=== PATIENT | female | born 1990 | race Two or more races ===

== ENCOUNTER 2020-08-27 18:45 | Inpatient (IN) | payer OTHER ==
[2020-08-27 19:33] VITALS: BMI 29.5
[2020-08-27] MEDS: DEXTROSE 5%-LACTATED RINGERS 1,000 ML IV SCH (19:45)
[2020-08-27] MEDS ORDERED: BETAMET ACET/BETAMET NA PH 30 MG/5 ML VIAL IM ONE (20:25)
[2020-08-27] MEDS ORDERED: BETAMET ACET/BETAMET NA PH 30 MG/5 ML VIAL ONE (20:36)
[2020-08-27] MEDS ORDERED: AMPICILLIN SODIUM 2 GM VIAL ONE (20:36)
[2020-08-27 20:41] LABS: BASO % 0.4 % (0-2.0); EOS % 0.3 % (0-4.5); HEMATOCRIT 36.5 % (32.4-45.2); HEMOGLOBIN 12.5 GM/dL (10.7-15.3); MCH 32.9 pg (25.7-33.7); MCHC 34.4 g/dl (32.0-36.0); MEAN CELL VOLUME 95.9 fl (80-96); MEAN PLT VOLUME 8.6 fl (7.5-11.1); MONO % 9.8 % (3.8-10.2); NEUT % 72.5 % (42.8-82.8); PLATELET COUNT 268 K/MM3 (134-434); RBC 3.81 M/mm3 (3.60-5.2); WHITE BLOOD COUNT 10.3 K/mm3 (4.0-10.0)
[2020-08-27] MEDS ORDERED: AMPICILLIN - 2 GM in SODIUM CHLORIDE 100 ML IVPB ONE (20:45)
[2020-08-27 20:49] LABS: INR 0.96 (0.83-1.09); PROTHROMBIN TIME (PATIENT) 11.6 SEC (9.7-13.0)
[2020-08-27 20:51] LABS: ACTIVATED PTT 25.9 SECONDS (25.2-36.5)
[2020-08-27 21:05] LABS: POTASSIUM 3.7 mmol/L (3.5-5.1)
[2020-08-27 21:06] LABS: CALCIUM 8.9 mg/dL (8.5-10.1)
[2020-08-27 21:07] LABS: BLOOD UREA NITROGEN 10.2 mg/dL (7-18)
[2020-08-27 21:10] LABS: CREATININE 0.5 mg/dL (0.55-1.3)
[2020-08-27 22:49] LABS: URINE BARBITURATES NEGATIVE ng/ml (CUTOFF=200)
[2020-08-27 22:50] LABS: METHADONE, UR NEGATIVE ng/ml (CUTOFF=300); PHENCYCLIDINE,URINE NEGATIVE ng/ml (CUTOFF=25); URINE BENZODIAZEPINES NEGATIVE ng/ml (CUTOFF=200)
[2020-08-27 23:01] LABS: COCAINE, UR NEGATIVE ng/ml (CUTOFF=300); OPIATES, URI NEGATIVE ng/ml (CUTOFF=300); URINE AMPHETAMINES NEGATIVE ng/ml (CUTOFF=500)
[2020-08-27] MEDS: AZITHROMYCIN 500 MG TABLET PO SCH (23:45)
[2020-08-28] MEDS ORDERED: AMPICILLIN SODIUM 1 GM VIAL ONE ×7 (00:31→23:40)
[2020-08-28] MEDS: AMPICILLIN - 1 GM in SODIUM CHLORIDE 100 ML IVPB SCH ×7 (00:45→23:47)
[2020-08-28 09:20] LABS: POC NITRAZINE POS
[2020-08-28] MEDS: DEXTROSE 5%-LACTATED RINGERS 1,000 ML IV SCH ×2 (12:45→23:49)
[2020-08-28] MEDS: AZITHROMYCIN 500 MG TABLET PO SCH (22:53)
[2020-08-28] MEDS ORDERED: SODIUM CHLORIDE 100 ML IVPB ONE (23:40)
[2020-08-29] MEDS ORDERED: AMPICILLIN SODIUM 1 GM VIAL ONE ×2 (03:27→08:35)
[2020-08-29] MEDS ORDERED: SODIUM CHLORIDE 100 ML IVPB ONE ×2 (03:27→08:35)
[2020-08-29] MEDS: AMPICILLIN - 1 GM in SODIUM CHLORIDE 100 ML IVPB SCH ×2 (03:53→08:48)
[2020-08-29] MEDS: DEXTROSE 5%-LACTATED RINGERS 1,000 ML IV SCH (08:00)
[2020-08-29] MEDS: AMOXICILLIN 250 MG CAPSULE PO SCH ×3 (14:27→22:23)
[2020-08-29] MEDS: MAG HYDROX/AL HYDROX/SIMETH 30 ML UNIT-DOSE CUP PO PRN (14:27)
[2020-08-30] MEDS: AMOXICILLIN 250 MG CAPSULE PO SCH (06:03)
[2020-08-30] MEDS: MAG HYDROX/AL HYDROX/SIMETH 30 ML UNIT-DOSE CUP PO PRN (17:18)
[2020-08-31 08:45] LABS: BASO % 0.1 % (0-2.0); EOS % 0.3 % (0-4.5); HEMATOCRIT 33.8 % (32.4-45.2); HEMOGLOBIN 11.2 GM/dL (10.7-15.3); LYMPH % 16.8 % (8-40); MCH 32.1 pg (25.7-33.7); MCHC 33.2 g/dl (32.0-36.0); MEAN CELL VOLUME 96.7 fl (80-96); MEAN PLT VOLUME 8.2 fl (7.5-11.1); MONO % 7.8 % (3.8-10.2); PLATELET COUNT 246 K/MM3 (134-434); RBC 3.49 M/mm3 (3.60-5.2); RDW 13.8 % (11.6-15.6); WHITE BLOOD COUNT 11.7 K/mm3 (4.0-10.0)
[2020-08-31 10:06] LABS: ANISOCYTOSIS 0; MACROCYTOSIS 0; PLATELET ESTIMATE NORMAL
[2020-08-31 15:11] VITALS: BP 110/76; PULSE 92; TEMP 98
[2020-09-09 16:07] LABS: POC NITRAZINE NEG
== END 2020-08-31 14:05 | disposition home or self-care (01) | DRG 566 ==
LOC: JLDR 18:45 → J3W 08-28 21:10
PROVIDERS: ADMIT Obstetrics & Gynecology; ATTEND Obstetrics & Gynecology
DX: O42.913 Preterm premature rupture of membranes, unspecified as to length of time between rupture and onset of labor, third trimester (principal); Z3A.32 32 weeks gestation of pregnancy; K21.9 Gastro-esophageal reflux disease without esophagitis
CPT/HCPCS: 36415; 76819-TC; 80048; 80307; 83986-QW; 85025; 85610; 85730; 86780; 86850; 86900; 86901; 87070; 87077; 87081; 87086; 87205; 96372; C9803; U0003

== ENCOUNTER 2020-10-12 09:30 | Inpatient (IN) | payer OTHER ==
[2020-10-12] MEDS ORDERED: AMPICILLIN - 2 GM in SODIUM CHLORIDE 100 ML IVPB ONE ×3 (10:00→15:15)
[2020-10-12 10:58] VITALS: BMI 31.4
[2020-10-12] MEDS: ELECTROLYTE-148 SOLN 1,000 ML IV SCH ×3 (11:00→18:00)
[2020-10-12 11:41] LABS: BASO % 0.2 % (0-2.0); EOS % 0.1 % (0-4.5); HEMATOCRIT 36.6 % (32.4-45.2); HEMOGLOBIN 12.5 GM/dL (10.7-15.3); LYMPH % 15.3 % (8-40); MCH 32.3 pg (25.7-33.7); MEAN PLT VOLUME 8.8 fl (7.5-11.1); NEUT % 71.4 % (42.8-82.8); PLATELET COUNT 215 K/MM3 (134-434); RBC 3.86 M/mm3 (3.60-5.2); RDW 13.7 % (11.6-15.6); WHITE BLOOD COUNT 6.4 K/mm3 (4.0-10.0)
[2020-10-12 11:46] LABS: INR 0.99 (0.83-1.09)
[2020-10-12 11:49] LABS: ACTIVATED PTT 26.8 SECONDS (25.2-36.5)
[2020-10-12 11:59] LABS: CALCIUM 8.7 mg/dL (8.5-10.1)
[2020-10-12 12:00] LABS: BLOOD UREA NITROGEN 5.8 mg/dL (7-18)
[2020-10-12] MEDS ORDERED: ELECTROLYTE-148 SOLN 500 ML IV ONE (12:00)
[2020-10-12 12:03] LABS: CREATININE 0.5 mg/dL (0.55-1.3)
[2020-10-12] MEDS ORDERED: PCA PUMP NR ONE ×2 (12:21→20:02)
[2020-10-12] MEDS ORDERED: FENTANYL/BUPIVACAINE/NS/PF - PCEA - 50 ML DISP.SYRIN EP ONE ×3 (12:21→20:04)
[2020-10-12] MEDS ORDERED: BUPIVACAINE HCL/PF 0.25% (2.5MG/ML) 10 ML VIAL ONE (12:22)
[2020-10-12] MEDS: FENTANYL/BUPIVACAINE/NS/PF - PCEA - 50 ML DISP.SYRIN EP SCH (12:40)
[2020-10-12] MEDS: AMPICILLIN - 1 GM in SODIUM CHLORIDE 100 ML IVPB SCH ×3 (13:50→22:00)
[2020-10-12] MEDS ORDERED: AMPICILLIN SODIUM 1 GM VIAL ONE ×3 (13:53→21:47)
[2020-10-12] MEDS ORDERED: OXYTOCIN 30 UNITS in 0.9% NS 30 UNIT/500 ML INFUS.BAG IVPB ONE (15:13)
[2020-10-12] MEDS: OXYTOCIN 30 UNITS in 0.9% NS 30 UNIT/500 ML INFUS.BAG IVPB SCH (15:20)
[2020-10-12] MEDS ORDERED: AMPICILLIN - 1 GM in SODIUM CHLORIDE 100 ML IVPB SCH (16:00)
[2020-10-12] MEDS ORDERED: NALOXONE HCL 0.4 MG/ML VIAL IVPUSH PRN (17:21)
[2020-10-12] MEDS ORDERED: OXYTOCIN 20 UNITS in 0.9% NS 20 UNIT/1,000 ML INFUS.BAG IV ONE (21:15)
[2020-10-12 22:54] LABS: CORD BASE EXCESS -5.6 mmol/L (0-2); CORD HCO3 20.5 mmHg (20-29); CORD PCO2 42.2 mmHg (30-78); CORD PCO2 51.6 mmHg (30-78); CORD pH 7.266 (7.14-7.44); CORD pH 7.305 (7.14-7.44)
[2020-10-12] MEDS ORDERED: BENZOCAINE 28 GM HEMORRHOIDAL OINTMENT TP PRN (23:15)
[2020-10-12] MEDS ORDERED: METHYLERGONOVINE MALEATE 0.2 MG/1 ML AMP IM PRN (23:15)
[2020-10-12] MEDS ORDERED: BISACODYL 10 MG SUPP.RECT RC PRN (23:15)
[2020-10-12] MEDS ORDERED: BENZOCAINE 20% 57 GM BOTTLE TP PRN (23:15)
[2020-10-12] MEDS ORDERED: WITCH HAZEL 50% (TUCKS) 40 PAD/JAR PAD TP PRN (23:15)
[2020-10-12] MEDS: ACETAMINOPHEN 325 MG TABLET (FP) PO PRN (23:41)
[2020-10-13] MEDS ORDERED: OXYTOCIN 20 UNITS in 0.9% NS 20 UNIT/1,000 ML INFUS.BAG IV SCH (00:15)
[2020-10-13 08:24] LABS: BASO % 0.1 % (0-2.0); EOS % 0.1 % (0-4.5); HEMATOCRIT 33.3 % (32.4-45.2); HEMOGLOBIN 11.3 GM/dL (10.7-15.3); LYMPH % 13.4 % (8-40); MCH 32.2 pg (25.7-33.7); MCHC 33.8 g/dl (32.0-36.0); MEAN CELL VOLUME 95.3 fl (80-96); MEAN PLT VOLUME 8.3 fl (7.5-11.1); MONO % 9.5 % (3.8-10.2); NEUT % 76.9 % (42.8-82.8); PLATELET COUNT 179 K/MM3 (134-434); RBC 3.49 M/mm3 (3.60-5.2); RDW 13.8 % (11.6-15.6); WHITE BLOOD COUNT 11.8 K/mm3 (4.0-10.0)
[2020-10-13] MEDS: PRENATAL VITAMINS W/ FOLIC ACID TABLET (FP) PO SCH (10:08)
[2020-10-13] MEDS: IBUPROFEN 600 MG TABLET (FP) PO PRN ×2 (10:08→17:52)
[2020-10-13] MEDS: FERROUS SO4 325 MG TABLET (FP) PO SCH ×2 (10:09→21:18)
[2020-10-13] MEDS: ACETAMINOPHEN 325 MG TABLET (FP) PO PRN ×2 (10:09→17:53)
[2020-10-13] MEDS: ELECTROLYTE-148 SOLN 1,000 ML IV SCH (16:04)
[2020-10-13] MEDS: OXYTOCIN 30 UNITS in 0.9% NS 30 UNIT/500 ML INFUS.BAG IVPB SCH (16:04)
[2020-10-13] MEDS: FENTANYL/BUPIVACAINE/NS/PF - PCEA - 50 ML DISP.SYRIN EP SCH (21:17)
[2020-10-13] MEDS ORDERED: SENNOSIDES/DOCUSATE COMBO (SENNA PLUS) TABLET (UD) PO PRN (22:00)
[2020-10-14] MEDS: IBUPROFEN 600 MG TABLET (FP) PO PRN (06:27)
[2020-10-14] MEDS: ACETAMINOPHEN 325 MG TABLET (FP) PO PRN (06:27)
[2020-10-14] MEDS: PRENATAL VITAMINS W/ FOLIC ACID TABLET (FP) PO SCH (09:15)
[2020-10-14] MEDS: FERROUS SO4 325 MG TABLET (FP) PO SCH (09:15)
[2020-10-14 11:29] VITALS: BP 126/76; PULSE 63; TEMP 97.9
== END 2020-10-14 15:10 | disposition home or self-care (01) | DRG 560 ==
LOC: JLDR 09:30 → J3W 10-13 00:26
PROVIDERS: ADMIT Obstetrics & Gynecology; ATTEND Obstetrics & Gynecology
PROC: 10E0XZZ Delivery of Products of Conception, External Approach (ICD-10-PCS; principal; 2020-10-12)
PROC: 0W8NXZZ Division of Female Perineum, External Approach (ICD-10-PCS; 2020-10-12)
PROC: 10907ZC Drainage of Amniotic Fluid, Therapeutic from Products of Conception, Via Natural or Artificial Opening (ICD-10-PCS; 2020-10-12)
DX: O98.52 Other viral diseases complicating childbirth (principal); U07.1 COVID-19; O99.824 Streptococcus B carrier state complicating childbirth; Z3A.39 39 weeks gestation of pregnancy; Z37.0 Single live birth; Z87.09 Personal history of other diseases of the respiratory system; J45.909 Unspecified asthma, uncomplicated
CPT/HCPCS: 36415; 36600; 59409; 80048; 82803; 85025; 85610; 85730; 86780; 86850; 86900; 86901